=== PATIENT | male | born 1965 | race Caucasian/White ===

== ENCOUNTER → 2020-03-23 11:19 | Outpatient (CLI) | payer BC, SELFPAY ==
--- NOTE | 2020-03-23 11:21 | DI.RAD.S_ITS ---
PROCEDURE: XR WRIST RT MIN 3V INDICATIONS: right wrist pain TECHNIQUE: 4 views of the wrist were acquired. COMPARISON: [facility], , WRIST MINIMUM 3 VIEWS RIGHT, 11/27/2015, 15:56. FINDINGS: Bones: No acute fractures or dislocations. There is a remote fracture fragment again seen distal to the radial styloid. No suspicious bony lesions. Scaphoid view: No navicular fractures are seen. Soft tissues: No suspicious soft tissue calcifications. IMPRESSION: No acute fractures are seen. There is again seen a remote fracture fragment distal to the radial styloid. If there is snuffbox tenderness (or other clinical suspicion for a fracture not seen on these images) then a repeat examination would be recommended in 10 to 14 days, following splinting. Dictated by: Sukhwinder Bhandari M.D. on 03/23/2020 at 10:40 Approved by: Sukhwinder Bhandari M.D. on 03/23/2020 at 10:41
== END ==
PROVIDERS: PCP Family Medicine; Referring Provider Physician Assistant; Visit Provider Physician Assistant
DX: M25.531 Pain in right wrist (principal)
CPT/HCPCS: 73110

== ENCOUNTER → 2020-04-17 14:43 | Outpatient (CLI) | payer BC, SELFPAY ==
[2020-04-17 15:07] LABS: Add Manual Diff / Slide Review NO; Basophils Absolute Auto 0 /uL (0-100); Eosinophils Absolute Auto 100 /uL (0-450); Eosinophils Percent Auto 2.1 % (2-4); Hematocrit 41.7 % (41-53); Hemoglobin 14.7 g/dL (13.5-17.5); Lymphocytes Absolute Auto 900 /uL (1100-4500); Lymphocytes Percent Auto 23.2 % (25-40); Mean Corpuscular HGB Conc 35.1 % (30-36); Mean Corpuscular Hemoglobin 32.1 PG (26-34); Mean Corpuscular Volume 91.4 fL (80-100); Monocytes Absolute Auto 300 /uL (0-900); Monocytes Percent Auto 7.3 % (3-14); Neutrophils Absolute Auto 2600 /uL (1500-7000); Neutrophils Percent Auto 66.4 % (50-75); Platelet Count 210 X10^3/uL (150-400); Red Blood Cell Count 4.57 X10^6/uL (4.5-5.9); Red Cell Distribution Width 12.8 % (11.6-14.8); White Blood Cell Count 3.9 X10^3/uL (4.5-11.0)
[2020-04-17 15:27] LABS: Alanine Aminotransferase 25 IU/L (<50); Albumin 4.2 g/dL (3.5-5.0); Albumin Globulin Ratio 1.6 (1.0-2.8); Alkaline Phosphatase 44 U/L (38-126); Aspartate Aminotransferase 28 IU/L (17-59); BUN Creatinine Ratio 14.6 (6-22); Bilirubin Total 0.7 mg/dL (0.2-1.3); Blood Urea Nitrogen 15 mg/dL (9-20); Calcium 9.6 mg/dL (8.4-10.2); Carbon Dioxide 26 mmol/L (22-32); Chloride 105 mmol/L (98-107); Cholesterol 232 mg/dL (140-199); Estimated Glomerular Filt Rate > 60.0 mL/min (>60); Globulin 2.6 g/dL (1.7-4.1); Glucose 95 mg/dL (70-100); HDL Cholesterol 38 mg/dL (40-60); HEMOLYSIS < 15 (0-50); LDL Cholesterol Calculated 139 mg/dL (<100); Potassium 4.3 mmol/L (3.4-5.1); Sodium 137 mmol/L (137-145); Total Protein 6.8 g/dL (6.3-8.2); Triglycerides 276 mg/dL (35-150)
[2020-04-17 15:56] LABS: Prostate Specific Antigen Scrn 0.887 ng/mL (0.1-4.0)
== END ==
PROVIDERS: Referring Provider Family Medicine; Visit Provider Family Medicine
DX: E78.5 Hyperlipidemia, unspecified (principal); I10 Essential (primary) hypertension; Z12.5 Encounter for screening for malignant neoplasm of prostate
CPT/HCPCS: 36415; 80053; 80061; 85025; G0103

== ENCOUNTER → 2020-10-21 15:48 | Outpatient (CLI) | payer BC, SELFPAY ==
[2020-10-21] MEDS: COVID-19 VACC, Ad26(JANSSEN)/PF 0.5 ML IM (16:23)
== END ==
PROVIDERS: PCP Family Medicine; Visit Provider Internal Medicine
DX: Z23 Encounter for immunization (principal)
CPT/HCPCS: 0031A; 91303

== ENCOUNTER → 2021-06-13 08:47 | Outpatient (CLI) | payer BC, SELFPAY ==
--- NOTE | 2021-06-13 08:50 | DI.RAD.S_ITS ---
PROCEDURE: XR KNEE RT 3V INDICATIONS: RIGHT KNEE PAIN POST FALL TECHNIQUE: 3 views of the knee were acquired. COMPARISON: None. FINDINGS: Bones: No fractures or dislocations. No suspicious bony lesions. Mild tricompartmental osteoarthritis. Soft tissues: No joint effusion. No suspicious soft tissue calcifications. IMPRESSION: No fracture. No acute osseous lesion. If symptoms and/or clinical suspicion for pathology persists, further assessment with repeat radiographs (7-10 days) or advanced imaging (e.g. CT, MRI or bone scan) should be considered. Dictated by: Jessica Nickerson MD, PhD on 06/13/2021 at 8:16 Approved by: Jessica Nickerson MD, PhD on 06/13/2021 at 8:28
== END ==
PROVIDERS: PCP Family Medicine; Referring Provider Physician Assistant; Visit Provider Physician Assistant
DX: M25.561 Pain in right knee (principal)
CPT/HCPCS: 73562

== ENCOUNTER → 2021-07-31 13:55 | Outpatient (CLI) | payer BC, SELFPAY ==
--- NOTE | 2021-07-31 13:56 | DI.RAD.S_ITS ---
PROCEDURE: XR KNEE LT 3V INDICATIONS: Progressive left knee pain TECHNIQUE: 3 views of the knee were acquired. COMPARISON: [facility], CR, XR KNEE RT 3V, 06/13/2021, 8:58. FINDINGS: Bones: No fractures or dislocations. Small patellar osteophytes. Suspect mild joint space narrowing in the medial compartment. No suspicious bony lesions. Soft tissues: No significant joint effusion. No suspicious soft tissue calcifications. Vascular calcifications. IMPRESSION: Mild left knee DJD. Consider further evaluation of the knee with MRI. Dictated by: Cezar Etienne M.D. on 07/31/2021 at 14:34 Approved by: Cezar Etienne M.D. on 07/31/2021 at 14:36
== END ==
PROVIDERS: PCP Family Medicine; Referring Provider Family Medicine; Visit Provider Family Medicine
DX: M17.12 Unilateral primary osteoarthritis, left knee (principal); M25.562 Pain in left knee
CPT/HCPCS: 73562

== ENCOUNTER → 2021-10-22 18:58 | Outpatient (CLI) | payer BC, SELFPAY ==
--- NOTE | 2021-10-22 19:04 | DI.MRI.S_ITS ---
PROCEDURE: MR KNEE LT WO CON INDICATIONS: Lt knee pain TECHNIQUE: Noncontrast sagittal PD fast spin echo and T2 fast spin echo with fat saturation, sagittal 3-D FLASH with fat saturation; coronal T1 spin echo and PD fast spin echo with fat saturation, and axial PD fast spin echo with fat saturation through the knee. COMPARISON: [facility], MR, KNEE WITHOUT CONTRAST, 12/20/2013, 9:31. FINDINGS: Image quality: Excellent. Menisci: Deficiency of the posterior horn, medial meniscus, which may reflect meniscectomy and/or remote tear. Extrusion of the medial, anterior horn remnant. The lateral meniscus is intact. Cruciate ligaments: The posterior cruciate ligament is intact. Disruption of the anterior cruciate ligament. Medial structures: The medial collateral ligament appears intact. Visualized portions of the pes anserinus tendons appear normal. No abnormal bursal fluid. Lateral structures: The lateral collateral ligament complex is intact. The popliteus tendon appears normal. Iliotibial band appears normal. Anterior structures: The quadriceps and patellar tendons appear intact. Patellar alignment is normal. No edema in the infrapatellar fat pad. Bones and cartilage: Tricompartment osteophytosis. T2 hyperintense signal underlies the tibial PCL attachment, which may reflect intraosseous ganglion and or fibrocystic change with adjacent edema. No evidence of fracture. Deficiency of the medial and lateral compartment hyaline cartilage with small foci of subchondral edema. Signal heterogeneity of the patellofemoral compartment hyaline cartilage with maintained thickness. Joint space: Moderate knee joint fluid with intra-articular bodies. No Britt's cyst. Normal appearing synovial plicae are incidentally noted. IMPRESSION: 1. Deficiency of the posterior horn, medial meniscus, compatible with meniscectomy and/or chronic tear. 2. Disruption of the anterior cruciate ligament. 3. Moderate joint effusion with intra-articular bodies. 4. 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 Dictated by: Benigno Shepherd M.D. on 10/23/2021 at 10:21 Approved by: Benigno Shepherd M.D. on 10/23/2021 at 10:43
== END ==
PROVIDERS: PCP Family Medicine; Referring Provider Family Medicine; Visit Provider Family Medicine
DX: M25.562 Pain in left knee (principal); G89.29 Other chronic pain; M25.462 Effusion, left knee; S83.195A Other dislocation of left knee, initial encounter
CPT/HCPCS: 73721

== ENCOUNTER 2023-01-10 06:11 | Emergency (ER) | payer BC, SELFPAY ==
--- NOTE | 2023-01-10 06:18 | ED.GENADULT ---
HPI - General Adult General Chief complaint: Extremity Injury, Lower Stated complaint: left knee locked/cannot bear weight Time Seen by Provider: 01/10/23 06:17 History of Present Illness HPI narrative: 57-year-old male nonsmoker with extensive orthopedic history presents with a chief complaint of left knee pain, stating upon waking this morning he found it to be locked and he is unable to weightbear. He denies any recent trauma or injury and states that he frequently experiences his knee locking and has known injuries. Typically he can take his knee through a range of motion that releases it and allows him to go about his day but today's the 1st time he was unsuccessful in doing so. He denies numbness, tingling or weakness and is otherwise well and free of complaint Related Data Previous Rx's Medication Instructions Recorded cyclobenzaprine 10 mg tablet 10 mg PO HS #90 tabs 07/16/20 sertraline 100 mg tablet 100 mg PO QDAY #90 tabs 05/14/22 lisinopril 10 mg tablet 10 mg PO QDAY #90 tabs 07/21/22 Allergies Allergy/AdvReac Type Severity Reaction Status Date / Time No Known Drug Allergies Allergy Verified 01/09/22 07:19 Review of Systems Review of Systems Narrative: GENERAL: Denies chills, fatigue, malaise, fever, sweats. HEENT: Denies sinus pain, ear pain, sore throat, difficulty swallowing, dizziness. RESPIRATORY: Denies dyspnea, cough, wheezing, hemoptysis, sputum. CARDIOVASCULAR: Denies chest pain, palpitations, orthopnea, edema, GASTROINTESTINAL: Denies nausea, vomiting, abdominal pain, diarrhea, constipation, melena. : Denies dysuria, frequency, incontinence, hematuria, urinary retention. MUSCULOSKELETAL: See HPI SKIN: Denies rash, skin lesions, or other NEUROLOGIC: Denies weakness, headache, numbness, change in speech, confusion, seizures, incoordination. PSYCHIATRIC: No concerning psychosocial issues. 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 Extraoccular muscles are intact bilaterally. There is no subconjunctival hemorrhage or exudate. CHEST: Lungs are clear to auscultation bilaterally and free of wheezes, rales, or rhonchi. Heart rate is regular rhythm, there are no murmurs, clicks, rubs, or gallops. There is no chest wall tenderness. ABD: Abdomen is soft and nontender. There is no guarding or rebound. Bowel sounds are normal in all 4 quadrants. There is no mass or organomegaly. EXT: Full but painful range of motion of the left knee with no obvious effusion, ligamentous laxity or limited range of motion. No pain with Elsy's test. SKIN: Warm, pink, and dry. No erythema or rash Initial Vital Signs Initial Vital Signs: Vital Signs Temperature 98.7 F 01/10/23 06:25 Pulse Rate 77 01/10/23 06:25 Respiratory Rate 16 01/10/23 06:25 Blood Pressure 166/112 H 01/10/23 06:25 Pulse Oximetry 96 01/10/23 06:25 Oxygen Delivery Method Room Air 01/10/23 06:25 Course Orders Ordered: Discontinued Medications Hydrocodone Bitart/Acetaminophen (Hydrocodone/Acet 5/325 Prepack) 1 bottle MISC SEEINSTR ONE Stop: 01/10/23 06:55 Last Admin: 01/10/23 07:18 Dose: 1 bottle Documented By: LEE Hydrocodone Bitart/Acetaminophen (Hydrocodone/Acet 5/325 Tablet) 1 tab PO NOW ONE Stop: 01/10/23 07:01 Last Admin: 01/10/23 07:18 Dose: 1 tab Documented By: LEE Consultations Consultation #1: Discussed with on-call orthopedist, Dr. Fair, after reviewing the patient's history and physical as well as imaging she recommends against any specific splinting, encourages symptomatic treatment and close follow-up with her clinic. Medical Decision Making MDM Narrative Medical decision making narrative: [57] year old patient presents with knee pain and ?locking? knee Multiple etiologies for patient's symptoms considered including, but not limited to: [Meniscal injury versus other soft tissue or cartilaginous injury, question free-floating obstruction vs. other] Prior Charts reviewed in our EMR Primary Historian: patient Imaging reviewed:NAP Consultations: discussed with Dr. Fair, see details above Patient's symptoms improved over duration of stay with above-stated therapies. Findings and discharge diagnosis discussed with patient/family followed by verbalization of understanding Return precautions discussed with patient/family whom verbalize understanding of diagnosis and plan Discharge Plan Departure Patient Disposition: Home Clinical Impression: Arthralgia of left knee Instructions: DI for Meniscal Tear Activity Restrictions/Additional Instructions: *You have been diagnosed with [Left knee locking and pain ] *What to do: *Please continue to take your regular medications as directed. *Please follow up with Dr. Fair at [facility], call tomorrow and let them know you were seen in the Emergency Department and we would like you seen in follow up. *If you do not have a primary care provider please contact the [facility] Resource line at [phone]. They will ask some questions about your medical history and help get you set up with a doctor in the community. *Return to Emergency Department if you should have any new, worsening or concerning symptoms, such as [fever greater than 101 F, shaking chills, worsening pain, persistent vomiting or other bothersome symptoms] Prescriptions: No Action sertraline 100 mg tablet 100 mg PO QDAY Qty: 90 3RF lisinopril 10 mg tablet 10 mg PO QDAY Qty: 90 3RF cyclobenzaprine 10 mg tablet 10 mg PO HS Qty: 90 2RF Referrals: Trevon Martinez DO [Primary Care Provider] - Madelin Fair MD [Physician] - Stand Alone Forms: Patient Portal/API
--- NOTE | 2023-01-10 06:21 | DI.RAD.S_ITS ---
PROCEDURE: XR KNEE LT 3V INDICATIONS: pain, cannot weight bear TECHNIQUE: 3 views of the knee were acquired. COMPARISON: [facility], , XR KNEE LT 3V, 07/31/2021, 13:49. FINDINGS: Bones: No fractures or dislocations. No suspicious bony lesions moderate tricompartment degenerative changes. Soft tissues: Small joint effusion. Vascular calcifications.. IMPRESSION: Moderate degenerative changes without acute osseous abnormality. Agree with preliminary report. Dictated by: Haseeb Monteiro D.O. on 01/10/2023 at 8:10 Approved by: Haseeb Monteiro D.O. on 01/10/2023 at 8:16
[2023-01-10 06:25] VITALS: BP 166/112; PULSE 77; RESP 16; TEMP 37.1; O2SAT 96; BMI 28.7
[2023-01-10] MEDS: HYDROCODONE/ACET 5/325 PREPACK 1 BOTTLE MISC (07:18)
[2023-01-10] MEDS: HYDROCODONE/ACET 5/325 TABLET 1 TAB PO (07:18)
[2023-01-10 07:21] VITALS: BP 156/98; PULSE 75; RESP 18; O2SAT 97
== END 2023-01-10 07:22 | disposition home or self-care (01) ==
PROVIDERS: Emergency Provider Emergency Medicine; PCP Family Medicine
DX: M25.562 Pain in left knee (principal)
CPT/HCPCS: 73562; 99283

== ENCOUNTER → 2023-04-29 09:50 | Outpatient (CLI) | payer BC, SELFPAY ==
[2023-04-29 10:33] LABS: Add Manual Diff / Slide Review NO; Basophils Absolute Auto 0 /uL (0-100); Basophils Percent Auto 1.1 % (0-2); Eosinophils Absolute Auto 100 /uL (0-450); Eosinophils Percent Auto 1.7 % (2-4); Hematocrit 41.5 % (41-53); Hemoglobin 14.4 g/dL (13.5-17.5); Lymphocytes Absolute Auto 900 /uL (1100-4500); Lymphocytes Percent Auto 22.5 % (25-40); Mean Corpuscular HGB Conc 34.8 % (30-36); Mean Corpuscular Hemoglobin 32.4 PG (26-34); Mean Corpuscular Volume 93.2 fL (80-100); Monocytes Absolute Auto 300 /uL (0-900); Monocytes Percent Auto 8.5 % (3-14); Neutrophils Absolute Auto 2700 /uL (1500-7000); Neutrophils Percent Auto 66.2 % (50-75); Platelet Count 250 X10^3/uL (150-400); Red Blood Cell Count 4.45 X10^6/uL (4.5-5.9); Red Cell Distribution Width 12.9 % (11.6-14.8); White Blood Cell Count 4.1 X10^3/uL (4.5-11.0)
[2023-04-29 11:37] LABS: Alanine Aminotransferase 24 IU/L (<50); Albumin 4.2 g/dL (3.5-5.0); Albumin Globulin Ratio 1.6 (1.0-2.8); Alkaline Phosphatase 40 U/L (38-126); Aspartate Aminotransferase 26 IU/L (17-59); BUN Creatinine Ratio 15.7 (6-22); Bilirubin Total 0.6 mg/dL (0.2-1.3); Blood Urea Nitrogen 16 mg/dL (9-20); Calcium 9.5 mg/dL (8.4-10.2); Carbon Dioxide 24 mmol/L (22-32); Chloride 105 mmol/L (98-107); Estimated Glomerular Filt Rate > 60 mL/min (>60); Globulin 2.6 g/dL (1.7-4.1); Glucose 87 mg/dL (70-100); HEMOLYSIS < 15 (0-50); Potassium 4.2 mmol/L (3.4-5.1); Sodium 136 mmol/L (137-145); Total Protein 6.8 g/dL (6.3-8.2)
[2023-04-29 12:53] LABS: Clostridium Difficile Tox PCR Negative for C. diff (Negative)
== END ==
PROVIDERS: PCP Family Medicine; Referring Provider Family Medicine; Visit Provider Family Medicine
DX: K62.5 Hemorrhage of anus and rectum (principal)
CPT/HCPCS: 36415; 80053; 85025; 87493

== ENCOUNTER → 2023-06-15 08:01 | Outpatient (CLI) | payer BC, SELFPAY ==
[2023-06-15 08:55] LABS: Add Manual Diff / Slide Review NO; Basophils Absolute Auto 100 /uL (0-100); Basophils Percent Auto 1.3 % (0-2); Eosinophils Absolute Auto 100 /uL (0-450); Eosinophils Percent Auto 2.1 % (2-4); Hematocrit 42.8 % (41-53); Lymphocytes Absolute Auto 1100 /uL (1100-4500); Lymphocytes Percent Auto 27.3 % (25-40); Mean Corpuscular Hemoglobin 31.9 PG (26-34); Mean Corpuscular Volume 91.1 fL (80-100); Monocytes Absolute Auto 300 /uL (0-900); Monocytes Percent Auto 7.5 % (3-14); Neutrophils Absolute Auto 2600 /uL (1500-7000); Neutrophils Percent Auto 61.8 % (50-75); Platelet Count 236 X10^3/uL (150-400); Red Blood Cell Count 4.69 X10^6/uL (4.5-5.9); Red Cell Distribution Width 12.3 % (11.6-14.8); White Blood Cell Count 4.2 X10^3/uL (4.5-11.0)
[2023-06-15 09:00] LABS: Hemoglobin A1C% w Est Avg Glu 5.4 % (4.0-6.0)
[2023-06-15 09:04] LABS: BUN Creatinine Ratio 14.3 (6-22); Blood Urea Nitrogen 14 mg/dL (9-20); Carbon Dioxide 23 mmol/L (22-32); Chloride 104 mmol/L (98-107); Cholesterol 240 mg/dL (140-199); Estimated Glomerular Filt Rate > 60 mL/min (>60); Glucose 107 mg/dL (70-100); HDL Cholesterol 44 mg/dL (40-60); HEMOLYSIS < 15 (0-50); LDL Cholesterol Calculated 119 mg/dL (<100); Potassium 4.2 mmol/L (3.4-5.1); Sodium 137 mmol/L (137-145); Triglycerides 383 mg/dL (35-150)
[2023-06-15 09:25] LABS: Appearance Urine UA CLEAR; Bilirubin Urine UA NEGATIVE (NEGATIVE); Color Urine UA YELLOW; Glucose Urine UA NEGATIVE (Negative); Ketones Urine UA NEGATIVE (NEGATIVE); Leukocyte Esterase Urine UA NEGATIVE (NEGATIVE); Nitrite Urine UA NEGATIVE (Negative); Occult Blood Urine UA NEGATIVE (Negative); Protein Urine UA 1+ (Negative); Specific Gravity Urine UA 1.025 (1.000-1.035); Urobilinogen Urine UA 0.2 E.U./dL (0.2); pH Urine UA 5.5 (4.5-8.0)
[2023-06-15 09:42] LABS: Bacteria Urine None Seen; Mucus Urine 1+ (Negative); RBC Urine None Seen (0-5/HPF); Squamous Epithelial Cell Urine None Seen (0-5/HPF); WBC Urine 0-1/HPF (0-5/HPF)
[2023-06-15 09:43] LABS: Culture Indicated Urine Cult Not Indicated; Sperm Urine P
== END ==
PROVIDERS: PCP Family Medicine; Referring Provider Orthopaedic Surgery; Visit Provider Orthopaedic Surgery
DX: Z01.812 Encounter for preprocedural laboratory examination (principal); Z01.818 Encounter for other preprocedural examination; R73.9 Hyperglycemia, unspecified; N39.0 Urinary tract infection, site not specified; E78.2 Mixed hyperlipidemia; Z00.00 Encounter for general adult medical examination without abnormal findings
CPT/HCPCS: 36415; 80048; 80061; 81001; 83036; 85025; 93005

== ENCOUNTER → 2024-08-23 08:09 | Outpatient (CLI) | payer BC, SELFPAY ==
[2024-08-23 08:55] LABS: Add Manual Diff / Slide Review NO; Basophils Absolute Auto 0 /uL (0-100); Eosinophils Absolute Auto 100 /uL (0-450); Lymphocytes Absolute Auto 1100 /uL (1100-4500); Lymphocytes Percent Auto 27.8 % (25-40); Mean Corpuscular HGB Conc 34.9 % (30-36); Mean Corpuscular Hemoglobin 31.8 PG (26-34); Mean Corpuscular Volume 91.2 fL (80-100); Monocytes Absolute Auto 300 /uL (0-900); Monocytes Percent Auto 7.7 % (3-14); Neutrophils Absolute Auto 2500 /uL (1500-7000); Neutrophils Percent Auto 60.5 % (50-75); Platelet Count 235 X10^3/uL (150-400); Red Blood Cell Count 4.71 X10^6/uL (4.5-5.9); Red Cell Distribution Width 12.2 % (11.6-14.8); White Blood Cell Count 4.1 X10^3/uL (4.5-11.0)
[2024-08-23 09:05] LABS: Hemoglobin A1C% w Est Avg Glu 5.2 % (4.0-6.0)
[2024-08-23 09:15] LABS: Alanine Aminotransferase 25 IU/L (<50); Albumin 4.4 g/dL (3.5-5.0); Albumin Globulin Ratio 1.8 (1.0-2.8); Alkaline Phosphatase 44 U/L (38-126); Aspartate Aminotransferase 31 IU/L (17-59); BUN Creatinine Ratio 14.3 (6-22); Bilirubin Total 0.6 mg/dL (0.2-1.3); Blood Urea Nitrogen 17 mg/dL (9-20); Calcium 9.3 mg/dL (8.4-10.2); Carbon Dioxide 28 mmol/L (22-32); Chloride 103 mmol/L (98-107); Cholesterol 240 mg/dL (140-199); Estimated Glomerular Filt Rate > 60 mL/min (>60); Globulin 2.5 g/dL (1.7-4.1); Glucose 100 mg/dL (70-100); HDL Cholesterol 35 mg/dL (40-60); HEMOLYSIS < 15 (0-50); Potassium 4.4 mmol/L (3.4-5.1); Sodium 137 mmol/L (137-145); Total Protein 6.9 g/dL (6.3-8.2)
[2024-08-23 09:26] LABS: Triglycerides 778 mg/dL (35-150)
[2024-08-23 09:44] LABS: Prostate Specific Antigen 0.843 ng/mL (0.10-4.00)
== END ==
LOC: LAB 08:11
PROVIDERS: PCP Family Medicine; Referring Provider Family Medicine; Visit Provider Family Medicine
DX: Z00.00 Encounter for general adult medical examination without abnormal findings (principal); I10 Essential (primary) hypertension; F32.9 Major depressive disorder, single episode, unspecified; E78.5 Hyperlipidemia, unspecified
CPT/HCPCS: 36415; 80053; 80061; 83036; 84153; 85025

== ENCOUNTER → 2024-12-19 07:59 | Outpatient (CLI) | payer BC, SELFPAY ==
[2024-12-19 08:52] LABS: Alanine Aminotransferase 28 IU/L (<50); Albumin 4.6 g/dL (3.5-5.0); Albumin Globulin Ratio 1.8 (1.0-2.8); Alkaline Phosphatase 48 U/L (38-126); Aspartate Aminotransferase 32 IU/L (17-59); BUN Creatinine Ratio 14.8 (6-22); Bilirubin Total 0.8 mg/dL (0.2-1.3); Blood Urea Nitrogen 16 mg/dL (9-20); Calcium 9.6 mg/dL (8.4-10.2); Carbon Dioxide 22 mmol/L (22-32); Chloride 107 mmol/L (98-107); Cholesterol 259 mg/dL (140-199); Estimated Glomerular Filt Rate > 60 mL/min (>60); Globulin 2.5 g/dL (1.7-4.1); Glucose 101 mg/dL (70-99); HDL Cholesterol 50 mg/dL (40-60); HEMOLYSIS < 15 (0-50); LDL Cholesterol Calculated 149 mg/dL (<100); Potassium 4.4 mmol/L (3.4-5.1); Sodium 138 mmol/L (137-145); Total Protein 7.1 g/dL (6.3-8.2); Triglycerides 299 mg/dL (35-150)
== END ==
PROVIDERS: PCP Family Medicine; Referring Provider Family Medicine; Visit Provider Family Medicine
DX: E78.5 Hyperlipidemia, unspecified (principal); I10 Essential (primary) hypertension
CPT/HCPCS: 36415; 80053; 80061